=== PATIENT | male | born 1945 | race Caucasian/White ===

== ENCOUNTER → 2019-08-13 | Outpatient (CLI) | payer MEDICARE, MEDICAID ==
[2019-08-13 11:03] LABS: ABSOLUTE LYMPHOCYTES (AUTO) 1.8 10^3/uL (0.5-4.7); ABSOLUTE MONOCYTES (AUTO) 0.9 10^3/uL (0.1-1.4); ABSOLUTE NEUT (AUTO) 4.3 10^3/uL (1.7-8.2); BASOPHILS % (AUTO) 0.2 % (0-2); EOSINOPHILS % (AUTO) 0.5 % (0-6); HEMATOCRIT 44.1 % (37.9-51.0); HEMOGLOBIN 15.2 g/dL (13.5-17.0); LYMPHOCYTES % (AUTO) 25.9 % (13-45); MEAN CORPUSCULAR HGB CONC 34.4 g/dL (32.0-36.0); MEAN CORPUSCULAR VOLUME 93 fl (80-97); MONOCYTES % (AUTO) 12.7 % (3-13); PLATELET COUNT 205 10^3/uL (150-450); RED BLOOD COUNT 4.75 10^6/uL (4.35-5.55); SEGMENTED NEUTROPHILS % (AUTO) 60.7 % (42-78); TOTAL CELLS COUNTED % (AUTO) 100 %; WHITE BLOOD COUNT 7.1 10^3/uL (4.0-10.5)
[2019-08-13 11:15] LABS: APPEARANCE,URINE CLEAR; BILIRUBIN,URINE NEGATIVE (NEGATIVE); COLOR,URINE YELLOW; GLUCOSE, URINE NEGATIVE (NEGATIVE); KETONES,URINE NEGATIVE (NEGATIVE); PROTEIN,URINE NEGATIVE (NEGATIVE); URINE SPECIFIC GRAVITY 1.023; UROBILINOGEN,URINE NEGATIVE mg/dL (<2.0)
[2019-08-13 11:24] LABS: ALBUMIN 4.8 g/dL (3.5-5.0); ANION GAP 11 (5-19); BLOOD UREA NITROGEN 24 mg/dL (7-20); CALCIUM 10.2 mg/dL (8.4-10.2); CARBON DIOXIDE 26 mmol/L (22-30); CHLORIDE 100 mmol/L (98-107); GLUCOSE 95 mg/dL (75-110); POTASSIUM 4.7 mmol/L (3.6-5.0)
[2019-08-13 11:29] LABS: PREALBUMIN 26.9 mg/dL (17.6-36.0)
[2019-08-13 11:35] LABS: C-REACTIVE PROTEIN < 5.0 mg/L (<10.0)
[2019-08-13 11:58] LABS: ERYTHROCYTE SEDIMENTATION RATE 9 mm/hr (0-20)
--- NOTE | 2019-08-13 12:51 | RADIOLOGY REPORT (SQ) ---
EXAM DESCRIPTION: CHEST PA/LATERAL COMPLETED DATE/TIME: 08/13/2019 10:30 am REASON FOR STUDY: PRE-OP COMPARISON: 08/13/2019 EXAM PARAMETERS: NUMBER OF VIEWS: two views TECHNIQUE: Digital Frontal and Lateral radiographic views of the chest acquired. RADIATION DOSE: NA LIMITATIONS: none FINDINGS: LUNGS AND PLEURA: No opacities, masses or pneumothorax. No pleural effusion. MEDIASTINUM AND HILAR STRUCTURES: No masses or contour abnormalities. HEART AND VASCULAR STRUCTURES: Heart normal size. No evidence for failure. BONES: No acute findings. HARDWARE: None in the chest. OTHER: No other significant finding. IMPRESSION: NO SIGNIFICANT RADIOGRAPHIC FINDING IN THE CHEST. TECHNICAL DOCUMENTATION: JOB ID: [id number] [employer].- All Rights Reserved Reading location - IP/workstation name: [email or web address]
== END ==
LOC: OD 09:48
PROVIDERS: ATTEND Orthopaedic Surgery
DX: Z01.812 Encounter for preprocedural laboratory examination (principal); Z01.818 Encounter for other preprocedural examination; M25.551 Pain in right hip
CPT/HCPCS: 36415; 71046; 80048; 81001; 82040; 82306; 84134; 85025; 85652; 86140

== ENCOUNTER 2019-09-01 07:02 | Day surgery (SDC) | payer MEDICARE, MEDICAID ==
[~2019-09-01 07:02] MED LIST: ACETAMINOPHEN 325 MG TABLET PO PRN; CEFAZOLIN SODIUM 2 GM in DEXTROSE 5%-WATER 100 ML IV PRN; CELECOXIB 200 MG CAPSULE PO PRN; GABAPENTIN 100 MG CAPSULE PO PRN; LACTATED RINGERS 1000 ML IV PRN; LIDOCAINE 0.5% INJ-PF (5 MG/ML) 50 ML SDV SUBCUT PRN; OXYCODONE HCL SR 10 MG TABLET PO PRN; SCOPOLAMINE HYDROBROMIDE 1.5 MG PATCH.TD72 TD PRN; TRAMADOL HCL 50 MG TABLET PO PRN; TRANEXAMIC ACID INJ/PF 1,000 MG/10 ML SDV IV PRN; VANCOMYCIN HCL 1,000 MG in DEXTROSE 5%-WATER 250 ML IV PRN
[2019-09-01] MEDS ORDERED: CELECOXIB 200 MG CAPSULE ONE (08:35)
[2019-09-01] MEDS ORDERED: OXYCODONE HCL SR 10 MG TABLET PO ONE (08:35)
[2019-09-01] MEDS ORDERED: TRAMADOL HCL 50 MG TABLET ONE (08:35)
[2019-09-01] MEDS ORDERED: ACETAMINOPHEN 325 MG TABLET ONE (08:35)
[2019-09-01] MEDS ORDERED: GABAPENTIN 100 MG CAPSULE ONE (08:36)
[2019-09-01] MEDS ORDERED: ONDANSETRON HCL INJ/PF 4 MG/2 ML SDV ONE ×2 (08:36→10:17)
[2019-09-01] MEDS ORDERED: SCOPOLAMINE HYDROBROMIDE 1.5 MG PATCH.TD72 ONE (08:36)
[2019-09-01] MEDS ORDERED: PHENYLEPHRINE HCL INJ/PF 10 MG/1 ML SDV ONE (09:52)
[2019-09-01] MEDS ORDERED: GLYCOPYRROLATE 1 MG/5 ML VIAL ONE (09:52)
[2019-09-01] MEDS ORDERED: TRANEXAMIC ACID INJ/PF 1,000 MG/10 ML SDV ONE (10:08)
[2019-09-01] MEDS ORDERED: PROPOFOL INJ 200 MG/20 ML VIAL IV ONE ×2 (10:08→10:17)
[2019-09-01] MEDS ORDERED: MIDAZOLAM 2 MG/2 ML INJ ONE ×2 (10:16→10:17)
[2019-09-01] MEDS ORDERED: VANCOMYCIN HCL INJ 1000 MG VIAL ONE (10:17)
[2019-09-01] MEDS ORDERED: BUPIVACAINE HCL 0.25 % INJ/PF (2.5 MG/1 ML) 30 ML VIAL ONE (10:17)
[2019-09-01] MEDS ORDERED: BACITRACIN INJ 50,000 UNIT VIAL ONE (10:17)
[2019-09-01] MEDS ORDERED: KETAMINE HCL INJ 500 MG/10 ML VIAL ONE (10:17)
[2019-09-01] MEDS ORDERED: KETOROLAC TROMETHAMINE INJ/PF 30 MG/1 ML SDV ONE (10:17)
[2019-09-01] MEDS ORDERED: EPINEPHRINE INJ/PF 1 MG/1 ML AMPULE ONE (10:17)
[2019-09-01] MEDS ORDERED: ONDANSETRON HCL INJ/PF 4 MG/2 ML SDV IV PRN (12:47)
[2019-09-01] MEDS ORDERED: MEPERIDINE HCL/PF INJ 25 MG/1 ML DISP.SYRIN IV PRN (12:47)
[2019-09-01] MEDS ORDERED: FENTANYL CITRATE INJ/PF 100 MCG/2 ML AMPUL IV PRN ×2 (12:47)
[2019-09-01] MEDS ORDERED: MORPHINE SULFATE 10 MG/ML INJ IV PRN ×2 (12:47→14:18)
[2019-09-01] MEDS ORDERED: DIPHENHYDRAMINE HCL 50 MG/ML VIAL IV PRN (12:47)
[2019-09-01] MEDS ORDERED: OXYCODONE-ACETAMINOPHEN 5-325 MG TABLET PO PRN ×2 (12:47)
[2019-09-01] MEDS ORDERED: PROMETHAZINE HCL INJ 25 MG/1 ML VIAL IV PRN (12:47)
--- NOTE | 2019-09-01 13:22 | Operative Report ---
Operative Report DATE OF SURGERY: 09/01/19 PREOPERATIVE DIAGNOSIS: Severe right hip arthritis secondary to hip dysplasia. POSTOPERATIVE DIAGNOSIS: Severe right hip arthritis secondary to hip dysplasia OPERATION: Right total hip arthroplasty SURGEON: EZEKIEL HUDSON JR ANESTHESIA: Spinal COMPLICATIONS: None ESTIMATED BLOOD LOSS: 150 cc PROCEDURE: Implants: [employer]omet Taperloc micro-plasty size 12 femoral stem with lateral offset, a G7 size 52 mm cup, and a standard 36 mm liner, a -6 neck length 36 mm mm ceramic head BRIEF HISTORY: 74 year old L with severe degenerative arthritis of right hip secondary to hip dysplasia, which has failed conservative treatment and has elected for a total hip arthroplasty. Risks include but are not limited to bleeding, infection, anesthesia, , injury to nerve or vessel, pain, scar, leg length inequality, dislocation, future surgery, and blood clots. Patient read through the pre-op counseling form and signed and solicited for surgery on their right hip. OPERATIVE PROCEDURE: Patient was brought to the operating room on and underwent spinal anesthesia. 2 grams of Ancef and 1 g of vancomycin was given. After proper anesthesia was obtained, patient was positioned, padded, prepped, and draped in the usual sterile fashion on the operating room table. Appropriate time out was performed. An anterior approach to the hip was undertaken with meticulous hemostasis through the deep interval. A capsulectomy was performed followed by exposure of the femoral neck. The femoral neck was cut in line with the femoral broach and the femoral head was removed. The acetabulum was then exposed with three retractors in an atraumatic fashion. Soft tissue and osteophytes were removed. Medialization reaming was performed followed by anatomic reaming up to accept a 52 mm acetabulum. Wound was irrigated with dilute betadyne solution and the 52 mm acetabulum was impacted into correct position and stability checked by manipulating the impaction handle which rocked the pelvis. A standard 36 mm liner was impacted into the shell with good stability. Potential impinging osteophytes were removed. Attention was then directed toward the femur, which was exposed with two retractors in an atraumatic fashion. A bone hook was placed to carefully perform releases along the superior capsule until the femur was safely delivered through the wound. Due to his dysplasia his hip was tight, this required a slightly extensile proximal exposure with release of the ATFL from the anteriormost iliac crest. A box office agent was utilized followed by lateralization rasping and then broaching up to accept a 12 femur. With a standard offset neck and a standard head, stability was good in flexion and extension with slightly long operative leg length and potential impingement of the anterior femur on the acetabulum. We then trialed a lateral offset -6 that provided ideal leg length with no further concern of impingement. The real lateral offset femur was impacted into a copiously irrigated femoral canal. A 36 mm -6 head was impacted on a clean dry femoral taper. The hip was irrigated and reduced, further ir rigation with saline solution, Aricept solution, then saline solution. Bleeders were coagulated with bovie cautery. The fascia was then closed with number 2 Stratofix, which was also utilized to bring the anterior portion of the T FL back to the iliac crest with transosseous sutures; the subcutaneous tissue closed with interrupted inverted 2-0 monocryl then running 3-0 monocryl subcuticular. Dermabond skin glue was applied followed by a silver dressing. All needle sponge and instrument counts were correct. Patient was awakened from sedation anesthesia and taken to recovery room in good condition. Thank you, Ezekiel Hudson, DO
[2019-09-01] MEDS ORDERED: OXYCODONE HCL IR 5 MG TABLET PO PRN ×4 (13:34→14:17)
--- NOTE | 2019-09-01 13:47 | RADIOLOGY REPORT (SQ) ---
EXAM DESCRIPTION: HIP RIGHT AP/LATERAL COMPLETED DATE/TIME: 09/01/2019 1:37 pm REASON FOR STUDY: CHECK POST OP PLACEMENT M17.11 UNILATERAL PRIMARY OSTEOARTHRITIS, RIGHT KNEE COMPARISON: 06/29/2019. NUMBER OF VIEWS: Two view(s). TECHNIQUE: Digital radiographic images of the right hip post-procedure. LIMITATIONS: None. FINDINGS: BONES: No worrisome or unexpected findings post-procedure. DEVICE: Total hip replacement. Components of the device in appropriate location. SOFT TISSUES: No worrisome findings. Expected postoperative soft tissue changes. IMPRESSION: SATISFACTORY POSTOPERATIVE RIGHT HIP. TECHNICAL DOCUMENTATION: JOB ID: [id number] 2010 [employer]- All Rights Reserved Reading location - IP/workstation name: [email or web address]
[2019-09-01] MEDS ORDERED: TRAMADOL HCL 50 MG TABLET PO PRN (14:18)
[2019-09-01] MEDS ORDERED: DIPHENHYDRAMINE HCL 25 MG CAPSULE PO PRN (14:20)
[2019-09-01] MEDS ORDERED: PANTOPRAZOLE SODIUM 20 MG TABLET.DR PO PRN (14:20)
[2019-09-01] MEDS ORDERED: ZOLPIDEM TARTRATE 5 MG TABLET PO PRN (14:21)
[2019-09-01] MEDS ORDERED: DOCUSATE SODIUM 100 MG CAPSULE PO PRN (14:21)
[2019-09-01] MEDS ORDERED: ONDANSETRON 4 MG TAB.RAPDIS PO PRN (14:22)
[2019-09-01] MEDS ORDERED: NORMAL SALINE 1000 ML 1,000 ML IV PRN (14:22)
--- NOTE | 2019-09-01 15:41 | RADIOLOGY REPORT (SQ) ---
EXAM DESCRIPTION: NO CHG FLUORO; HIP IN OPERATING RM COMPLETED DATE/TIME: 09/01/2019 3:21 pm REASON FOR STUDY: TOTAL RIGHT HIP ARTHROPLASTY ASST WITH FLUORO IN OR COMPARISON: None. FLUOROSCOPY TIME: No significant recorded fluoro time. 1 image saved to PACS LIMITATIONS: None. PROCEDURE: Right hip arthroplasty. FINDINGS: An image from fluoro documents the procedure. IMPRESSION: Right hip arthroplasty. Refer to operative note for further information. COMMENT: PQRS 6045F: Fluoroscopy time of the procedure is documented in the report. TECHNICAL DOCUMENTATION: JOB ID: [id number] 2010 [employer]- All Rights Reserved Reading location - IP/workstation name: [email or web address]
--- NOTE | 2019-09-01 15:41 | RADIOLOGY REPORT (SQ) ---
EXAM DESCRIPTION: NO CHG FLUORO; HIP IN OPERATING RM COMPLETED DATE/TIME: 09/01/2019 3:21 pm REASON FOR STUDY: TOTAL RIGHT HIP ARTHROPLASTY ASST WITH FLUORO IN OR COMPARISON: None. FLUOROSCOPY TIME: No significant recorded fluoro time. 1 image saved to PACS LIMITATIONS: None. PROCEDURE: Right hip arthroplasty. FINDINGS: An image from fluoro documents the procedure. IMPRESSION: Right hip arthroplasty. Refer to operative note for further information. COMMENT: PQRS 6045F: Fluoroscopy time of the procedure is documented in the report. TECHNICAL DOCUMENTATION: JOB ID: [id number] 2010 [employer]- All Rights Reserved Reading location - IP/workstation name: [email or web address]
[2019-09-01] MEDS ORDERED: GABAPENTIN 100 MG CAPSULE PO SCH (18:00)
[2019-09-01] MEDS ORDERED: AMLODIPINE BESYLATE 5 MG TABLET PO SCH (18:00)
[2019-09-01 19:29] VITALS: BP 130/71
[2019-09-01] MEDS ORDERED: (PENDING PHARMACY ID) (Losartan Potassium [Losartan Potassium] 100 MG) PO SCH (22:00)
[2019-09-01] MEDS ORDERED: LOSARTAN POTASSIUM 50 MG TABLET PO SCH (22:00)
[2019-09-01] MEDS ORDERED: CEFAZOLIN SODIUM 2 GM in DEXTROSE 5%-WATER 100 ML IV SCH (22:00)
[2019-09-01] MEDS ORDERED: ACETAMINOPHEN 325 MG TABLET PO SCH (22:00)
[2019-09-01] MEDS ORDERED: KETOROLAC TROMETHAMINE INJ/PF 30 MG/1 ML SDV IV SCH (22:00)
[2019-09-02] MEDS ORDERED: METOPROLOL SUCCINATE 50 MG TAB.SR.24H PO SCH (10:00)
[2019-09-02] MEDS ORDERED: (PENDING PHARMACY ID) (Esomeprazole Magnesium [Nexium 24hr] 40 MG) PO SCH (10:00)
[2019-09-02] MEDS ORDERED: (PENDING PHARMACY ID) (Metoprolol Succinate [Metoprolol Succinate] 100 MG) PO SCH (10:00)
[2019-09-02] MEDS ORDERED: POLYETHYLENE GLYCOL 3350 POWDER 17 GM/1 PACKET PO SCH (10:00)
[2019-09-02] MEDS ORDERED: ASPIRIN 325 MG TABLET PO SCH (10:00)
[2019-09-02] MEDS ORDERED: PANTOPRAZOLE SODIUM 40 MG TABLET.DR PO SCH (10:00)
--- NOTE | 2019-09-02 14:18 | PDOC DISCHARGE SUMMARY ---
Impression - Admit/DC Date/PCP Admission Date/Primary Care Provider: MIKHAIL PERDOMO Discharge Date: 09/01/19 - Assessment Summary: Severe right hip osteoarthritis secondary to right hip dysplasia. - Additional Information Resuscitation Status: Full Code Discharge Diet: As Tolerated Discharge Activity: Activity As Tolerated, No Driving, Keep Legs Elevated, No Lifting Over 10 Pounds, Slowly Increase Activity, Walk Frequently Referrals: MELISSA HUDSON JR, DO [ACTIVE PROVISIONAL STAFF] - 09/11/19 10:05 am Home Medications: Amlodipine Besylate [Norvasc 5 mg Tablet] 5 mg PO BID 08/26/19 Esomeprazole Magnesium [Nexium 24Hr] 40 mg PO DAILY 08/26/19 Losartan Potassium 100 mg PO QHS 08/26/19 Metoprolol Succinate 100 mg PO DAILY 08/26/19 Acetaminophen [Tylenol 325 mg Tablet] 975 mg PO PREOP PRN tablet 09/01/19 Celecoxib [Celebrex 200 mg Capsule] 200 mg PO PREOP PRN capsule 09/01/19 Gabapentin [Neurontin 100 mg Capsule] 100 mg PO PREOP PRN capsule 09/01/19 Tramadol HCl [Ultram 50 mg Tablet] 50 mg PO PREOP PRN tablet 09/01/19 History of Present Illiness History of Present Illness: HANK CORRIGAN is a very pleasant 74-year-old male who presented to my clinic with chronic right hip pain that is been going on for over a year. After thorough work-up and attempts at conservative treatment including activity modification and [id number] pain medication, they were having severe difficulty with ambulation and was over the counter pain medication for daily activity. They found the pain debilitating and decreasing thier quality of life as they were unable to perform activities of daily living such as ambulating short distances and getting in and out of the car. After a thorough work-up including x-rays that demonstrated joint space narrowing, lqkg-[id number]-[id number] contact, subchondral sclerosis, and osteophyte formation as well as discussing risks and benefits and other treatment options, the patient elected to proceed with a right total hip arthroplasty. Hospital Course Hospital Course: They were brought to the operating room on 09/01/2019 and underwent a right total hip arthroplasty and tolerated procedure very well with out complication. They were then admitted to the hospital floor for postoperative medical management, monitoring, and pain control. The patient improved more rapidly than expected. He was walking well on postoperative day 0 with physical therapy and wished to go home as he had minimal pain and no other reasons for acute hospitalization. They were discharged home on 09/01/2019. They had no acute events or complications over the course of their stay. All detailed instructions and prescriptions were provided to the patient prior to admission on the prior office visit. Physical Exam Vital Signs: Temp Pulse Resp BP Pulse Ox 97.9 F 52 L 16 130/71 H 97 09/01/19 19:26 09/01/19 19:26 09/01/19 19:26 09/01/19 19:26 09/01/19 19:26 Intake & Output 09/01/19 09/02/19 09/03/19 06:59 06:59 06:59 Intake Total 2800 Output Total 1330 Balance 1470 Weight 86.18 kg 86.18 kg Results Laboratory Results: Blood Type O POSITIVE 09/01/19 07:49 Antibody Screen NEGATIVE 09/01/19 07:49 Impressions: Fluoroscopy 09/01/19 00:00 IMPRESSION: Right hip arthroplasty. Refer to operative note for further information. Hip X-Ray 09/01/19 00:00 IMPRESSION: Right hip arthroplasty. Refer to operative note for further information. Hip/Pelvis X-Ray 09/01/19 00:00 IMPRESSION: SATISFACTORY POSTOPERATIVE RIGHT HIP. Stroke Is this a Stroke Patient?: No Acute Heart Failure - Is this a Heart Failure Patient?: No
[2019-09-03] MEDS ORDERED: CELECOXIB 200 MG CAPSULE PO SCH (10:00)
== END 2019-09-01 20:21 | disposition home or self-care (01) ==
LOC: OROUT 07:02 → EDSTATUS 09:30 → 4N 14:03 → OROUT 20:21
PROVIDERS: ATTEND Orthopaedic Surgery
DX: M17.11 Unilateral primary osteoarthritis, right knee (principal); Z79.899 Other long term (current) drug therapy; Z79.82 Long term (current) use of aspirin; Z79.891 Long term (current) use of opiate analgesic; M16.31 Unilateral osteoarthritis resulting from hip dysplasia, right hip; I25.2 Old myocardial infarction
CPT/HCPCS: 86900; 86901; 36415; 86850; 73502; 73501; 97110; 97116; 97163; 97535; 97165; 01214; 27130; A9270 ×6; J2250; J3490 ×4; J0690; J0171; J1885; J2370; J2405; J7060 ×2; J2704; J3370